=== PATIENT | male | born 1945 | race Caucasian/White ===

== ENCOUNTER 2017-03-16 19:25 | Emergency (ER) | payer OTHER ==
[~2017-03-16] VITALS: Ht 154.9 cm; Wt 59.1 kg
[2017-03-16 19:32] VITALS: Ht 154.9 cm; Wt 59.1 kg
[2017-03-16] MEDS ORDERED: morphine 4 MG/ML VIAL IV STA (19:51)
[2017-03-16] MEDS ORDERED: FAMOTIDINE 20 MG INJ IV STA (19:51)
[2017-03-16] MEDS ORDERED: ONDANSETRON 4 MG INJ IV STA (19:51)
[2017-03-16] MEDS ORDERED: SOD CHLORIDE 0.9% 1,000 ML IV STA (19:51)
--- NOTE | 2017-03-16 20:43 | RADRPT ---
PROCEDURE: US Abdomen. CLINICAL INDICATION: abdominal pain TECHNIQUE: Multiple real-time images were acquired of the patient's right upper quadrant abdomen a nd retroperitoneum utilizing a high resolution transducer. COMPARISON: None FINDINGS: The liver demonstrates normal echogenicity. The liver is normal in size and no focal solid lesions are seen. The liver measures 17.1 cm in length. The portal vein is patent with normal direction of f low. No intrahepatic biliary dilatation is seen. Multiple calcified gallstones are identified within the gallbladder. There is no pericholecystic fl uid or gallbladder wall thickening. The common bile duct measures 5 mm in maximal dimension. The visualized portions of the pancreas are unremarkable. The tail of the pancreas is not seen. No free fluid is identified. The right kidney is normal in size, and demonstrate normal echogenicity and cortical thickness. The right kidney measures 11.8 cm in long dimension. There is no evidence of hydronephrosis. There are no kidney stones. There are multiple simple cysts in the right kidney measuring up to 3.2 cm. RPTAT: AA IMPRESSION: Cholelithiasis. Multiple simple cysts in the right kidney. .Bennett Mauro MD, MD Date Time Electronically viewed and signed by .Bennett Mauro MD, on 03/16/2017 20:43 .S/
[2017-03-16 20:54] LABS: ADD SCAN DIFF NO
[2017-03-16 20:57] LABS: BASOPHILS % 0.4 % (0.0-2.0); EOSINOPHILS # 0.1 10^3/ul (0.0-0.5); EOSINOPHILS % 1.4 % (0.0-7.0); HEMATOCRIT 47.6 % (42.0-52.0); HEMOGLOBIN 15.5 g/dl (14.0-18.0); LYMPHOCYTES # 1.3 10^3/ul (0.8-2.9); LYMPHOCYTES % 13.3 % (15.0-51.0); MEAN CORPUSCULAR HEMOGLOBIN 30.1 pg (29.0-33.0); MEAN CORPUSCULAR HGB CONC 32.6 g/dl (32.0-37.0); MEAN CORPUSCULAR VOLUME 92.4 fl (82.0-101.0); MEAN PLATELET VOLUME 9.8 fl (7.4-10.4); MONOCYTE # 0.7 10^3/ul (0.3-0.9); MONOCYTES % 7.2 % (0.0-11.0); NEUTROPHIL # 7.6 10^3/ul (1.6-7.5); NEUTROPHILS % 77.3 % (39.0-77.0); PLATELET COUNT 254 10^3/UL (140-415); RED BLOOD COUNT 5.15 10^6/ul (4.70-6.10); RED CELL DISTRIBUTION WIDTH 13.8 % (11.5-14.5); WHITE BLOOD COUNT 9.9 10^3/ul (4.8-10.8)
[2017-03-16] MEDS ORDERED: BISO5TAB21 PO (21:13)
[2017-03-16 21:15] LABS: ALBUMIN 4.4 g/dl (3.3-4.9); ALBUMIN/GLOBULIN RATIO 1.15; CALCIUM 9.8 mg/dl (8.4-10.2); CREATININE 0.88 mg/dl (0.61-1.24); POTASSIUM 5.2 mmol/L (3.5-5.1); TOTAL PROTEIN 8.2 g/dl (6.1-8.1)
[2017-03-16] MEDS ORDERED: CARV3.1260 PO (21:16)
[2017-03-16] MEDS ORDERED: ASPI-535 PO (21:17)
[2017-03-16 21:22] VITALS: BP 148/71; PULSE 80; RESP 18
--- NOTE | 2017-03-16 21:29 | ERD ---
ER Documentation Chief Complaint Date/Time DATE: 03/16/17 TIME: 21:27 Chief Complaint BIBA, c/o RUQ abd pain,vomited X3 HPI This is a 71-year-old male who presents to the emergency room after being brought in by ambulance for evaluation of abdominal pain. The patient states that he has had abdominal pain for the past 2 days on and off and localizes it to the right upper quadrant. He states he is vomited 3 times. The patient states that he used to be a physician in [facility] and states that he was told previously he had gallstones and gallbladder polyps. The patient was brought in for evaluation of possible gallbladder infection. ROS All systems reviewed and are negative except as per history of present illness. Medications Home Meds Reported Medications Aspirin Ec (Aspir 81) 81 Mg Tablet.dr, 81 MG PO DAILY, #30 TAB 03/16/17 Carvedilol* (Carvedilol*) Unknown Strength Tablet, MG PO DAILY, #60 TAB TAKE 1/2 TABS 03/16/17 Bisoprolol Fumarate* (Bisoprolol Fumarate*) 5 Mg Tablet, 5 MG PO DAILY, TAB 03/16/17 Allergies Allergies: Uncoded Allergies: ANALGIN (Allergy, Unknown, 03/16/17) BARALGIN (Allergy, Unknown, 03/16/17) PMhx/Soc History of Surgery: No Anesthesia Reaction: No Hx Neurological Disorder: Yes (TIA) Hx Respiratory Disorders: No Hx Cardiac Disorders: Yes (HTN) Hx Psychiatric Problems: No Hx Miscellaneous Medical Probl: No Hx Alcohol Use: Yes (occasionally) Hx Substance Use: No Hx Tobacco Use: Yes Smoking Status: Current every day smoker Physical Exam Vitals Vital Signs Date Time Temp Pulse Resp B/P Pulse Ox O2 Delivery O2 Flow Rate FiO2 03/16/17 21:22 80 18 148/71 100 Room Air 03/16/17 19:54 57 14 142/82 98 Room Air 03/16/17 19:32 97.7 55 18 191/89 98 Physical Exam INITIAL VITAL SIGNS: Reviewed by me GENERAL: The patient is well developed and appropriate for usual state of health in no apparent distress HEENT: Pupils equal, round, and reactive to light. EOMI. There is no scleral icterus. NECK: C-spine is soft and supple, there is no meningismus. There is no cervical lymphadenopathy. LUNGS: Clear to auscultation bilaterally. There are no rales, wheezes or rhonchi. HEART: Regular rate and rhythm, no murmurs, clicks, rubs or gallops. ABDOMEN: Positive Baxter sign, otherwise soft, non-tender, non-distended. There are bowel sounds in all four quadrants. No rebound or guarding. EXTREMITIES: There is no peripheral cyanosis or edema. No focal swelling or erythema. NEUROLOGICAL: The patient moves all four extremities with 5/5 strength. Cranial nerves II - XII are intact. Normal gait. Alert and oriented SKIN: There is no apparent rash or petechiae. HEME/LYMPHATIC: There is no evidence of excessive bruising or lymphedema. PSYCHIATRIC: The patient does not appear anxious or depressed. Result Diagram: 03/16/17203903/16/172039 Results 24 hrs Laboratory Tests Test 03/16/17 20:40 White Blood Count 9.910^3/ul Red Blood Count 5.1510^6/ul Hemoglobin 15.5g/dl Hematocrit 47.6% Mean Corpuscular Volume 92.4fl Mean Corpuscular Hemoglobin 30.1pg Mean Corpuscular Hemoglobin Concent 32.6g/dl Red Cell Distribution Width 13.8% Platelet Count 38797^3/UL Mean Platelet Volume 9.8fl Neutrophils % 77.3% Lymphocytes % 13.3% Monocytes % 7.2% Eosinophils % 1.4% Basophils % 0.4% Nucleated Red Blood Cells % 0.0/100WBC Neutrophils # 7.610^3/ul Lymphocytes # 1.310^3/ul Monocytes # 0.710^3/ul Eosinophils # 0.110^3/ul Basophils # 0.010^3/ul Nucleated Red Blood Cells # 0.010^3/ul Sodium Level 136mmol/L Potassium Level 5.2mmol/L Chloride Level 100mmol/L Carbon Dioxide Level 28mmol/L Anion Gap 13 Blood Urea Nitrogen 21mg/dl Creatinine 0.88mg/dl Glucose Level 104mg/dl Calcium Level 9.8mg/dl Total Bilirubin 0.0mg/dl Direct Bilirubin 0.00mg/dl Indirect Bilirubin 0.0mg/dl Aspartate Amino Transf (AST/SGOT) 21IU/L Alanine Aminotransferase (ALT/SGPT) 37IU/L Alkaline Phosphatase 73IU/L Total Protein 8.2g/dl Albumin 4.4g/dl Globulin 3.80g/dl Albumin/Globulin Ratio 1.15 Lipase 83U/L Current Medications Medications (Trade) Dose Ordered Sig/Tony Route PRN Reason Start Time Stop Time Status Last Admin Dose Admin Sodium Chloride (NS) 1,000 ml @ 1,000 mls/hr Q1H STAT IV 03/16/17 19:51 03/16/17 20:50 DC 03/16/17 20:45 Morphine Sulfate (morphine) 4 mg ONCE STAT IV 03/16/17 19:51 03/16/17 19:53 DC 03/16/17 20:42 Ondansetron HCl (Zofran Inj) 4 mg ONCE STAT IV 03/16/17 19:51 03/16/17 19:53 DC 03/16/17 20:42 Famotidine (Pepcid Iv) 20 mg ONCE STAT IV 03/16/17 19:51 03/16/17 19:53 DC 03/16/17 20:42 Procedures/MDM Ultrasound gallbladder: Cholelithiasis. Multiple simple cysts in the right kidney. This 71-year-old male presents to the emergency room for evaluation of abdominal pain. The patient did have right upper quadrant pain on my examination. An ultrasound was obtained which shows cholelithiasis with no signs of cholecystitis. This patient does not have a leukocytosis, he is afebrile, no signs of transaminitis or elevated bilirubin. The patient was given morphine in the emergency room and a pulmonary evaluation he states he is feeling much better. The patient is likely suffering from biliary colic and will be discharged home with a prescription for Tylenol with codeine, and a referral for general surgery. Smoking Cessation Therapy: Pt. was lectured for greater than 3 minutes on the health risks of continued smoking and the benefits of cessation. Departure Diagnosis: Primary Impression: Biliary colic Additional Impressions: Abdominal pain Cholelithiasis Condition: Stable CECELIA YANG DO March 16, 2017 21:29
[2017-03-16] MEDS ORDERED: ACET1TAB40 PO (21:30)
== END 2017-03-16 21:41 | disposition home or self-care (01) ==
LOC: E/R 19:25
DX: K80.70 Calculus of gallbladder and bile duct without cholecystitis without obstruction (principal); R40.2252 Coma scale, best verbal response, oriented, at arrival to emergency department; R11.10 Vomiting, unspecified; I10 Essential (primary) hypertension; F17.210 Nicotine dependence, cigarettes, uncomplicated; R40.2142 Coma scale, eyes open, spontaneous, at arrival to emergency department; R40.2362 Coma scale, best motor response, obeys commands, at arrival to emergency department; Z79.82 Long term (current) use of aspirin
CPT/HCPCS: 36415; 76705; 80053; 83690; 85025; 96374; 96375; J2405; J7030; Z7502; Z7610; J2270

== ENCOUNTER 2018-03-12 13:19 | Emergency (ER) | END 2018-03-12 15:45 | disposition home or self-care (01) ==

== ENCOUNTER 2018-03-16 13:57 | Emergency (ER) | END 2018-03-16 15:30 | disposition home or self-care (01) ==